=== PATIENT | female | born 2000 | race Caucasian/White ===

== ENCOUNTER 2019-09-18 13:21 | Emergency (ER) | payer MEDICAID ==
[~2019-09-18] VITALS: Ht 157.5 cm; Wt 53.5 kg
[2019-09-18 13:46] VITALS: Ht 157.5 cm; Wt 53.5 kg
[2019-09-18 15:03] LABS: BASOPHIL % 0.4 % (0-2)
[2019-09-18 15:05] LABS: PLATELET COUNT 405 x10^3mcL (130-400)
[2019-09-18 17:41] VITALS: BP 144/67
== END 2019-09-18 17:42 | disposition home or self-care (01) ==
LOC: ED 13:21
PROVIDERS: Emergency Medicine
DX: O23.41 Unspecified infection of urinary tract in pregnancy, first trimester (principal); Z3A.01 Less than 8 weeks gestation of pregnancy
CPT/HCPCS: 36415